=== PATIENT | female | born 1985 | race African-American/Black ===

== ENCOUNTER 2016-08-01 11:50 | Emergency (ER) | payer MEDICAID ==
[~2016-08-01 11:50] MED LIST: ANAPROX DS550 MG PO; ANTIBIOTIC PO; FLEXERIL10 MG PO; KEFLEX500 M1 PO; MIRALAX17 G1 PO; MOTRIN800 MG PO; NORCO 5-325 TA1 EACH PO; PERCOCET 5MG/AP1 TA3 PO; ULTRAM50 MG PO
[2016-08-01] MEDS ORDERED: [UNRECOGNIZED DRUG - REMARK] (12:09)
[2016-08-01 13:01] LABS: BASO % 0.4 % (0-2); EOS % 0.7 % (0-7); EOSINOPHIL ABSOLUTE COUNT 0.1 tho/cmm (0.0-0.7); HCT-HEMATOCRIT 43.6 % (34.0-49.0); HGB-HEMOGLOBIN 14.9 gm/dl (12.0-15.5); IMMATURE GRANULOCYTES ABSOLUTE 0.04 tho/cmm (0-0.03); IMMATURE GRANULOCYTES PERCENT 0.4 % (0-0.3); LYMPH % 19.1 % (20-45); MCHC MEAN CORPUSCULAR HGB CONC 34.2 % (32.0-36.0); MCV (MEAN CELL VOLUME) 90.6 fl (82.0-96.0); MEAN PLATELET VOLUME 11.5 cmc (9.4-12.4); MONO % 8.4 % (0-12); MONOCYTE ABSOLUTE COUNT 0.9 tho/cmm (0.0-1.2); NEUTROPHIL ABSOLUTE COUNT 7.6 tho/cmm (1.6-8.0); NEUTROPHIL-AUTOMATED 7.6 tho/cmm (1.6-8.0); PLATELET COUNT 266 tho/cmm (150-450); RED BLOOD COUNT 4.81 mil/cmm (4.00-5.20); RED CELL DISTRIBUTION WIDTH 13.3 % (12.4-16.4); WHITE BLOOD COUNT 10.7 tho/cmm (4.0-10.0)
[2016-08-01 13:09] LABS: PREGNANCY-SERUM NEGATIVE (NEGATIVE)
[2016-08-01 13:13] LABS: ALBUMIN 3.5 g/dl (3.5-5.0); ALKALINE PHOSPHATASE 56 U/L (33-138); ALT/SGPT 41 U/L (12-78); ANION GAP 10 mmol/L (0-20); AST/SGOT 24 U/L (10-40); BILIRUBIN,TOTAL 0.4 mg/dl (0-1.5); BLOOD UREA NITROGEN 7 mg/dl (6-24); CALCIUM 8.7 mg/dl (8.5-10.5); CARBON DIOXIDE-VENOUS 26 mmol/L (22-32); CHLORIDE 109 mmol/l (96-110); CREATININE 0.78 mg/dl (0.50-1.10); GLUCOSE 79 mg/dL (70-110); POTASSIUM 3.8 mmol/L (3.7-5.1); SODIUM 141 mmol/L (135-145); eGFR VALUE FOR BLACK >90 mL/Min
[2016-08-01 13:27] LABS: C-REACTIVE PROTEIN <0.3 mg/dl (0-0.9)
[2016-08-01 13:41] LABS: URINE APPEARANCE CLEAR; URINE BILIRUBIN NEGATIVE (NEG); URINE BLOOD NEGATIVE (NEG); URINE COLOR YELLOW; URINE GLUCOSE (UA) NEGATIVE (NEG); URINE KETONE NEGATIVE (NEG); URINE LEUKOCYTE ESTERASE POSITIVE (NEG); URINE NITRITE NEGATIVE (NEG); URINE PROTEIN NEGATIVE (NEG); URINE SPECIFIC GRAVITY 1.005 (1.003-1.030)
[2016-08-01 13:47] LABS: URINE EPITHELIAL CELLS 0-2 /[HPF] (0-10); URINE RBC 0-2 /[HPF] (0-5)
[2016-08-01] MEDS ORDERED: NORCO 5-325 TA1 EACH PO (15:58)
[2016-08-22] MEDS ORDERED: [UNRECOGNIZED DRUG - OTHER] (09:18)
[2016-08-22] MEDS ORDERED: PHENTERMINE HCL30 M1 PO (09:19)
[2016-11-19] MEDS ORDERED: NO HOME MEDICATION XX (10:56)
== END 2016-08-01 16:19 ==
LOC: EDMED 11:50
PROVIDERS: Physician Assistant
DX: A59.9 Trichomoniasis, unspecified (principal); F17.210 Nicotine dependence, cigarettes, uncomplicated
CPT/HCPCS: J1170; J2405; J7030; Q9967

== ENCOUNTER 2016-08-22 09:59 | Emergency (ER) | payer MEDICAID ==
[~2016-08-22 09:59] MED LIST changes: +PHENTERMINE HCL30 M1 PO; +[UNRECOGNIZED DRUG - OTHER]; +[UNRECOGNIZED DRUG - REMARK]
[2016-08-22 10:03] LABS: URINE BILIRUBIN NEGATIVE (NEG); URINE BLOOD MODERATE (NEG); URINE GLUCOSE (UA) NEGATIVE (NEG); URINE KETONE NEGATIVE (NEG); URINE LEUKOCYTE ESTERASE POSITIVE (NEG); URINE NITRITE NEGATIVE (NEG); URINE PROTEIN SMALL (NEG)
[2016-08-22 10:11] LABS: URINE APPEARANCE CLEAR; URINE COLOR YELLOW
[2016-08-22 10:12] LABS: BASO % 0.4 % (0-2); EOS % 0.4 % (0-7); HCT-HEMATOCRIT 40.9 % (34.0-49.0); HGB-HEMOGLOBIN 14.1 gm/dl (12.0-15.5); IMMATURE GRANULOCYTES ABSOLUTE 0.03 tho/cmm (0-0.03); IMMATURE GRANULOCYTES PERCENT 0.3 % (0-0.3); LYMPH % 19.2 % (20-45); LYMPH ABSOLUTE COUNT 1.7 tho/cmm (0.8-4.5); MCH (MEAN CORPUSCULAR HGB) 30.9 pg (28.0-32.0); MCHC MEAN CORPUSCULAR HGB CONC 34.5 % (32.0-36.0); MCV (MEAN CELL VOLUME) 89.7 fl (82.0-96.0); MEAN PLATELET VOLUME 11.1 cmc (9.4-12.4); MONOCYTE ABSOLUTE COUNT 0.5 tho/cmm (0.0-1.2); NEUTROPHIL ABSOLUTE COUNT 6.7 tho/cmm (1.6-8.0); NEUTROPHIL-AUTOMATED 6.7 tho/cmm (1.6-8.0); NEUTROPHILS % 74.7 % (40-80); PLATELET COUNT 255 tho/cmm (150-450); RED BLOOD COUNT 4.56 mil/cmm (4.00-5.20); RED CELL DISTRIBUTION WIDTH 13.1 % (12.4-16.4)
[2016-08-22 10:24] LABS: PREGNANCY-SERUM NEGATIVE (NEGATIVE)
[2016-08-22 10:27] LABS: URINE MUCUS 1+; URINE RBC 0 /[HPF] (0-5); URINE WBC 0 /[HPF] (0-5)
[2016-08-22 10:33] LABS: C-REACTIVE PROTEIN <0.3 mg/dl (0-0.9)
[2016-11-19] MEDS ORDERED: NO HOME MEDICATION XX (10:56)
== END 2016-08-22 13:16 ==
LOC: EDMED 09:59
PROVIDERS: Emergency Medicine
DX: N83.201 Unspecified ovarian cyst, right side (principal); F17.200 Nicotine dependence, unspecified, uncomplicated
CPT/HCPCS: J1885

== ENCOUNTER 2016-09-21 19:47 | Emergency (ER) | payer MEDICAID ==
[2016-11-19] MEDS ORDERED: NO HOME MEDICATION XX (10:56)
== END 2016-09-21 21:58 | disposition left against medical advice (07) ==
LOC: EDMED 19:47
DX: O99.89 Other specified diseases and conditions complicating pregnancy, childbirth and the puerperium (principal); M54.5 Low back pain; Z3A.01 Less than 8 weeks gestation of pregnancy; Z53.21 Procedure and treatment not carried out due to patient leaving prior to being seen by health care provider